=== PATIENT | female | born 1985 | race Caucasian/White ===

== ENCOUNTER → 2022-06-29 | Outpatient (CLI) | payer MEDICAID, SELFPAY ==
[2022-07-02 07:07] LABS: Chlamydia By Nucleic Acid AMP Negative (Negative)
[2022-07-02 08:31] LABS: Gonococcus By Nucleic Acid AMP Negative (Negative)
== END | disposition home or self-care (01) ==
PROVIDERS: Referring Provider Obstetrics & Gynecology; Visit Provider Obstetrics & Gynecology
DX: Z34.90 Encounter for supervision of normal pregnancy, unspecified, unspecified trimester (principal)
CPT/HCPCS: 87086; 87088; 87491; 87591

== ENCOUNTER → 2022-08-02 | Outpatient (CLI) | payer MEDICAID, SELFPAY ==
[2022-08-02 13:46] LABS: Absolute Lymphocyte Count 1.64 X10^3/uL (0.83-4.51); Absolute Neutrophil Count 7.6 X10^3/uL (2.0-7.7); Basophil# 0.02 X10^3/uL; Basophil% 0.2 % (0-1); Eosinophil# 0.07 X10^3/uL; Eosinophils% 0.7 % (0-5); Hematocrit 34.6 % (37-47); Hemoglobin 11.2 g/dL (12.0-15.0); Lymphocyte # 1.64 X10^3/ul (0.83-4.51); Lymphocyte % 16.7 % (19-41); Mean Corp Hgb Conc 32.4 g/dL (32-36); Mean Corpuscular Hgb 27.6 pg (27.0-32.0); Mean Corpuscular Volume 85.2 fL (81-99); Mean Platelet Vol. 8.9 fl (6.2-12.0); Monocyte# 0.45 X10^3/uL; Monocyte% 4.6 % (0-10); NRBC Flagged by Analyzer 0 % (0-5); Neutrophil # 7.62 X10^3/uL (2.7-7.7); Neutrophil % 77.4 % (47-70); Platelet Count 237 K/mm3 (150-450); RBC Distribution Width CV 14.1 % (11.6-14.6); RBC Distribution Width SD 43.8 fl (35.1-43.9); Red Blood Count 4.06 M/mm3 (4.2-5.4); White Blood Count 9.8 K/mm3 (4.4-11.0)
[2022-08-02 14:08] LABS: Glucose Challenge Gest 1H 50g 154 mg/dL (70-140)
[2022-08-02 14:52] LABS: HIV - WCH Non-Reactive (Nonreactive); Hepatitis B Surface Antigen Non-Reactive (Nonreactive); Hepatitis C Antibody Non-Reactive (Nonreactive); Rubella IgG Reactive (Nonreactive); Syphilis Antibodies Non-reactive
== END | disposition home or self-care (01) ==
LOC: PAVLAB 13:03
PROVIDERS: Referring Provider Obstetrics & Gynecology; Visit Provider Obstetrics & Gynecology
DX: Z34.90 Encounter for supervision of normal pregnancy, unspecified, unspecified trimester (principal)
CPT/HCPCS: 36415; 82950; 85025; 86703; 86762; 86780; 86803; 86850; 86900; 86901; 87340

== ENCOUNTER → 2022-08-08 | Outpatient (CLI) | payer MEDICAID, SELFPAY ==
[2022-08-08 11:34] LABS: Glucose GTT-Gestation. Fasting 94 mg/dL (<105)
[2022-08-08 11:48] LABS: Glucose GTT-Gestational 1 Hr 129 mg/dL (<190)
[2022-08-08 13:08] LABS: Glucose GTT-Gestational 2 Hr 155 mg/dL (<165)
[2022-08-08 14:20] LABS: Glucose GTT-Gestational 3 Hr 112 L (<145)
== END | disposition home or self-care (01) ==
LOC: LAB 10:09
PROVIDERS: Referring Provider Obstetrics & Gynecology; Visit Provider Obstetrics & Gynecology
DX: Z13.1 Encounter for screening for diabetes mellitus (principal)
CPT/HCPCS: 36415; 82951; 82952

== ENCOUNTER → 2022-10-27 | Outpatient (CLI) | payer MEDICAID, SELFPAY ==
[2022-10-27 12:06] LABS: Absolute Neutrophil Count 7.3 X10^3/uL (2.0-7.7); Basophil# 0.03 X10^3/uL; Basophil% 0.3 % (0-1); Eosinophil# 0.06 X10^3/uL; Eosinophils% 0.7 % (0-5); Hematocrit 30.1 % (37-47); Hemoglobin 9.4 g/dL (12.0-15.0); Lymphocyte % 13.2 % (19-41); Mean Corp Hgb Conc 31.2 g/dL (32-36); Mean Corpuscular Hgb 27.5 pg (27.0-32.0); Mean Platelet Vol. 9.3 fl (6.2-12.0); Monocyte# 0.46 X10^3/uL; Monocyte% 5.1 % (0-10); NRBC Flagged by Analyzer 0 % (0-5); Neutrophil # 7.28 X10^3/uL (2.7-7.7); Neutrophil % 79.9 % (47-70); Platelet Count 231 K/mm3 (150-450); RBC Distribution Width CV 13.5 % (11.6-14.6); RBC Distribution Width SD 43.7 fl (35.1-43.9); Red Blood Count 3.42 M/mm3 (4.2-5.4); White Blood Count 9.1 K/mm3 (4.4-11.0)
[2022-10-27 12:12] LABS: Glucose Challenge Gest 1H 50g 138 mg/dL (70-140)
[2022-10-27 12:57] LABS: HIV - WCH Non-Reactive (Nonreactive); Syphilis Antibodies Non-reactive
[2022-10-27 19:38] LABS: Xtra Tube EP Lab EXTRA TUBE
== END | disposition home or self-care (01) ==
LOC: PAVLAB 11:17
PROVIDERS: Registered Nurse; Referring Provider Obstetrics & Gynecology; Visit Provider Obstetrics & Gynecology
DX: O09.00 Supervision of pregnancy with history of infertility, unspecified trimester (principal); Z3A.24 24 weeks gestation of pregnancy; Z13.1 Encounter for screening for diabetes mellitus
CPT/HCPCS: 36415; 82950; 85025; 86703; 86780

== ENCOUNTER → 2022-11-15 | Outpatient (CLI) | payer MEDICAID, SELFPAY ==
[2022-11-15 10:51] LABS: Absolute Lymphocyte Count 1.57 X10^3/uL (0.83-4.51); Absolute Neutrophil Count 7.8 X10^3/uL (2.0-7.7); Basophil# 0.02 X10^3/uL; Basophil% 0.2 % (0-1); Eosinophil# 0.07 X10^3/uL; Eosinophils% 0.7 % (0-5); Hematocrit 29.4 % (37-47); Hemoglobin 9.7 g/dL (12.0-15.0); Lymphocyte # 1.57 X10^3/ul (0.83-4.51); Lymphocyte % 15.4 % (19-41); Mean Corpuscular Hgb 28.1 pg (27.0-32.0); Mean Corpuscular Volume 85.2 fL (81-99); Mean Platelet Vol. 8.7 fl (6.2-12.0); Monocyte# 0.69 X10^3/uL; Monocyte% 6.8 % (0-10); NRBC Flagged by Analyzer 0 % (0-5); Neutrophil # 7.77 X10^3/uL (2.7-7.7); Neutrophil % 76.4 % (47-70); Platelet Count 212 K/mm3 (150-450); RBC Distribution Width CV 13.9 % (11.6-14.6); RBC Distribution Width SD 42.6 fl (35.1-43.9); Red Blood Count 3.45 M/mm3 (4.2-5.4); White Blood Count 10.2 K/mm3 (4.4-11.0)
[2022-11-15 11:18] LABS: Glucose GTT-Gestation. Fasting 84 mg/dL (<105)
[2022-11-15 12:50] LABS: Glucose GTT-Gestational 1 Hr 156 mg/dL (<190)
[2022-11-15 13:39] LABS: Glucose GTT-Gestational 2 Hr 116 mg/dL (<165)
[2022-11-15 14:38] LABS: Glucose GTT-Gestational 3 Hr 103 L (<145)
[2022-11-15 14:45] LABS: Ferritin 7 ng/mL (8-252)
== END | disposition home or self-care (01) ==
PROVIDERS: Advanced Practice Midwife; Referring Provider Registered Nurse; Visit Provider Registered Nurse
DX: O99.019 Anemia complicating pregnancy, unspecified trimester (principal); Z3A.00 Weeks of gestation of pregnancy not specified
CPT/HCPCS: 36415; 82728; 82951; 82952; 85025

== ENCOUNTER → 2022-11-23 | Outpatient (CLI) | payer MEDICAID, SELFPAY ==
--- NOTE | 2022-11-23 13:36 | US_ITS ---
STUDY: Ultrasound OB limited 1 or more fetus REASON FOR EXAM: Female, 37 years old growth us. covid during PROVIDED GESTATIONAL AGE: 32 weeks 3 days correlating with January 15, 2023 delivery date PRIOR ULTRASOUND: None. TECHNIQUE: Transabdominal OB ultrasound grayscale and color flow and M-mode Doppler FINDINGS: Single live intrauterine with cephalic presentation. heart rate 148 bpm Filled stomach. Placenta posterior, grade 1, without evidence of abruption or previa ESTHER 14.8 with deepest vertical pocket 4.9 cm. Cervix 3.7 cm and closed. BIOMETRY: BPD: 8.4 cm: 33 weeks, 6 days HC: 30.0 cm: 33 weeks, 2 days AC: 29.1 cm: 33 weeks, 1 days FL: 6.0 cm: 31 weeks, 2 days age by current US: 32 weeks, 4 days. SUKHDEEP by current US: January 14, 2023 delivery date. Estimated weight: 2 pounds + -308 grams, this is 51 percentile. US/OB Limited With Biometrics IMPRESSION: Single live intrauterine with normal heart rate. Estimated gestational age by biometry is concordant with provided dating with weight at the 51st percentile. Electronically Signed: Pedrito Hsieh MD at 2:08 EDT ,
== END | disposition home or self-care (01) ==
PROVIDERS: Referring Provider Advanced Practice Midwife; Visit Provider Advanced Practice Midwife
DX: Z36.89 Encounter for other specified antenatal screening (principal); Z86.16 Personal history of COVID-19
CPT/HCPCS: 76816

== ENCOUNTER → 2022-12-04 | Outpatient (CLI) | payer MEDICAID, SELFPAY | END | disposition home or self-care (01) | LOC: LABSPEC 15:28 | PROVIDERS: Referring Provider Nurse Practitioner Women's Health; Visit Provider Nurse Practitioner Women's Health | DX: R35.0 Frequency of micturition (principal) | CPT/HCPCS: 87086; 87088 ==

== ENCOUNTER → 2022-12-22 | Outpatient (CLI) | payer MEDICAID, SELFPAY ==
[2022-12-22 10:28] LABS: Absolute Lymphocyte Count 1.32 X10^3/uL (0.83-4.51); Absolute Neutrophil Count 8.2 X10^3/uL (2.0-7.7); Basophil# 0.02 X10^3/uL; Basophil% 0.2 % (0-1); Eosinophil# 0.05 X10^3/uL; Eosinophils% 0.5 % (0-5); Hematocrit 35.3 % (37-47); Hemoglobin 11.2 g/dL (12.0-15.0); Lymphocyte # 1.32 X10^3/ul (0.83-4.51); Mean Corp Hgb Conc 31.7 g/dL (32-36); Mean Corpuscular Hgb 28.1 pg (27.0-32.0); Mean Corpuscular Volume 88.5 fL (81-99); Mean Platelet Vol. 9.4 fl (6.2-12.0); Monocyte# 0.53 X10^3/uL; Monocyte% 5.2 % (0-10); NRBC Flagged by Analyzer 0 % (0-5); Neutrophil # 8.18 X10^3/uL (2.7-7.7); Neutrophil % 80.4 % (47-70); Platelet Count 203 K/mm3 (150-450); RBC Distribution Width CV 15.5 % (11.6-14.6); RBC Distribution Width SD 50.2 fl (35.1-43.9); Red Blood Count 3.99 M/mm3 (4.2-5.4); White Blood Count 10.2 K/mm3 (4.4-11.0)
[2022-12-22 10:43] LABS: Ferritin 15 ng/mL (8-252)
--- NOTE | 2022-12-22 12:16 | US_ITS ---
STUDY: SECOND AND THIRD TRIMESTER OBSTETRICAL ULTRASOUND - LIMITED REASON FOR EXAM: Female, 37 years old growth scan, advance maternal age LMP: Established due date 01/15/2023. PRIOR ULTRASOUND: 11/23/2022 TECHNIQUE: Transabdominal TECHNICAL QUALITY: Adequate. FINDINGS: Single fetus identified in the uterus. Cephalic presentation. heart rate 137 bpm. Amniotic fluid index 10.29 cm. Largest fluid pocket 3.5 cm. Placenta is posterior. Grossly intact. No previa. Cervical length not well visualized. survey not assessed at this time. BIOMETRY: BPD: 9.03 cm: 36 weeks, 4 days HC: 33.70 cm: 38 weeks, 4 days AC: 34.95 cm: 38 weeks, 6 days FL: 6.80 cm: 35 weeks, 0 days Age by LMP: 36 weeks, 4 days. SUKHDEEP by LMP: 01/15/2023. age by prior US: 36 weeks, 5 days. SUKHDEEP by prior US: 01/14/2023. age by current US: 37 weeks, 2 days. SUKHDEEP by current US: 01/10/2023. Estimated weight: 3260 grams, +/- 489 grams, 79 percentile. Maternal ovaries not visualized. US/OB Limited With Biometrics IMPRESSION: Single live intrauterine estimated gestational age 37 weeks 2 days based on composite measurements. Electronically Signed: Swapna Parish MD at 0:45 EDT ,
== END | disposition home or self-care (01) ==
PROVIDERS: Advanced Practice Midwife; Obstetrics & Gynecology; Referring Provider Obstetrics & Gynecology; Visit Provider Obstetrics & Gynecology
DX: O09.529 Supervision of elderly multigravida, unspecified trimester (principal); O99.019 Anemia complicating pregnancy, unspecified trimester; Z3A.00 Weeks of gestation of pregnancy not specified
CPT/HCPCS: 36415; 76816; 82728; 85025; 87081

== ENCOUNTER 2023-01-16 07:29 | Inpatient (IN) | payer MEDICAID, SELFPAY ==
[2023-01-16] VITALS (42 sets, daily range): BP systolic 105–151; BP diastolic 58–97; PULSE 84–123; RESP 16; TEMP 36.4–37.3; O2SAT 92–100; BMI 34.0
--- NOTE | 2023-01-16 08:48 | HP.PCM.OB_ITS ---
HPI - General General Date of Admission: 01/16/23 HPI Narrative GRETCHEN SOMMER, is a 37 y/o @ 40 weeks 1 days who presents to L&D for IOL for AMA and obesity affecting . Maternal Data Information SUKHDEEP Calculator Estimated Delivery Date Method Current WG Current Estimate 01/15/23 Ultrasound #1 40w 1d Other Estimates 01/21/23 LMP (Uncertain) 39w 2d PFSH PFSH Home Medications vits,calcium no.78-iron fumarate-folic acid 29 mg-1 mg tablet (Prenatabs FA) 1 tab PO DAILY vitamin 03/29/14 [History Last Taken 03/28/14 0800] docusate sodium 100 mg capsule (Colace) 100 mg PO DAILY 06/20/22 [History Last Taken Unknown] aspirin 81 mg tablet,delayed release (Adult Aspirin Regimen) 81 mg PO DAILY 07/25/22 [History Last Taken Unknown] Allergy/AdvReac Type Severity Reaction Status Date / Time No Known Allergies Allergy Verified 01/16/23 08:47 Social History adopted: No household members: significant other and children number of children: 3 current occupational status: employed 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 current occupational exposures/hazards: No pets and animals: No history of recent travel: No sexually active: Yes Smoking Status: Never smoker alcohol intake: never substance use type: does not use well-balanced diet: daily or most days caffeine: No eating out: rarely or never during the past year weight has: remained stable what type of physical activity do you participate in: none wilson/nondenominational: Restoration seatbelt use: always do you feel safe at home: Yes 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 Date Name GA/Weeks Outcome Route Bth Weight Infant Gen Labor Lgth Anesthesia Del Locatn Provider FOB 09/14/09 [place] 39 live - full term forceps 6# Male e pidural [facility] Javier Asher 03/29/14 [place] 40 live - full term 7#14oz Male epi dural [facility] Dana Quispe 04/15/17 [place] 40 live - full term 8#15oz Male epi dural [facility] Sanket Quispe Visit Details Expected Delivery Route/Plan Labor Preferences- CB/BF classes: [] labor support person: [] labor intervention preferences: [] pain management options preferred: [] cut cord/dad catch: [] : [] PP control planned: wants Nexplanon in hospital discussed possible routes of delivery and associated risks: [] special requests: [] Plans Covid status: discussed Flu vaccine: discussed Tdap vaccine: done Rhogam: NA LARC form signed: done Problem list reviewed and updated with the most current plan of care details and appropriate orders placed. Relevant counseling for the gestational age provided. Continue routine care and follow up unless otherwise noted in visit notes/problem list details OB Flowsheet Initial Weight: Not Recorded Date -?-?-?-?-?-?-?-?-?-?-?-?- EGA Weight BP Urine Prot -?-?-?-?-?-?-?-?-?-?-?-?- Glucose FHR FuHt Pres Dilation -?-?-?-?-?-?-?-?-?-?-?-?- Effaced St Visit Note 06/29/22 -?-?-?-?-?-?-?-?-?-?-?-?- 11w 3d 190 lb 8 oz 125/84 -?-?-?-?-?-?-?-?-?-?-?-?- 179 -?-?--?-?-?-?-?-?-?-?-?-?- JV- single live IUP measuring 11 week 3 days, NIPT declined 07/31/22 -?-?-?-?-?-?-?-?-?-?-?-?- 16w 0d 194 lb 6 oz 124/82 Nega tive -?-?-?-?-?-?-?-?-?-?-?-?- Negative 162 -?-?-?-?-?-?-?-?-?-?-?-?- MH-No VB. Has no t done glucose yet, was late for prior draw. Will do this week. US ordered. 08/29/22 -?-?-?-?-?-?-?-?-?-?-?-?- 20w 1d 196 lb 4 oz 120/85 Nega tive -?-?-?-?-?-?-?-?-?-?-?-?- Negative 150 20 -?-?-?-?-?-?-?-?-?-?-?-?- KW- No concerns. +FM. No vb/lof/ctx. 3 hr Gtt normal. reviewed. had US today. 09/29/22 -?-?-?-?-?-?-?-?-?-?-?-?- 24w 4d 199 lb 130/79 Negative -?-?-?-?-?-?--?-?-?-?-?-?- Negative 145 24 -?-?-?-?-?-?-?-?-?-?-?-?- Sm- no vb lof go od fm no regular ctx Sm- no vb lof good fm no reg ular ctx no pain with hernia 10/27/22 -?-?-?-?-?-?-?-?-?-?-?-?- 28w 4d 200 lb 8 oz 125/90 128/76 Negative -?-?-?-?-?-?-?-?-?-?-?-?- Negative 135 29 -?-?-?-?-?-?-?-?-?-?-?-?- KW- no vb/lof/ct x. +FM. tdap and larc today. Hgb low-recommended iron. needs 3 hour GCT. 11/10/22 -?-?-?-?-?-?-?-?-?-?-?-?- 30w 4d 201 lb 4 oz 134/86 -?-?-?-?-?-?-?-?-?-?-?-?- 140 31 -?-?-?-?-?-?-?-?-?-?-?-?- SM- no vb lof go od fm no regular ctx 11/24/22 -?-?-?-?-?-?-?-?-?-?-?-?- 32w 4d 205 lb 2 oz 131/82 Nega tive -?-?-?-?-?-?-?-?-?-?-?-?- Negative 118 32 -?-?-?-?-?-?-?-?-?-?-?-?- LC- no lof/vb/ct x. good fm. no concerns. 12/04/22 -?-?-?-?-?-?-?-?-?-?-?-?- 34w 0d 204 lb 8 oz 122/84 Nega tive -?-?-?-?-?-?-?-?-?-?-?-?- Negative 136 0 -?-?-?-?-?-?-?-?-?-?-?-?- -work in for d yovana. +UA. Culture pending. Macrobid sent. Good FM 12/15/22 -?-?-?-?-?-?-?-?-?-?-?-?- 35w 4d 206 lb 2 oz 134/86 -?-?-?-?-?-?-?-?-?-?-?-?- 140 37 -?-?-?-?-?-?-?-?-?-?-?-?- SM- no vb lof go od fm no regular ctx 12/22/22 -?-?-?-?-?-?-?-?-?-?-?-?- 36w 4d 206 lb 8 oz 136/84 Trac e -?-?-?-?-?-?-?-?-?-?-?-?- Negative 140 36 Cephalic 0 -?-?-?-?-?-?-?-?-?-?-?-?- JV- GBS collecte d, labor precautions discussed. has growth scan today. cbc ordered 12/29/22 -?-?-?-?-?-?-?-?-?-?-?-?- 37w 4d 210 lb 2 oz 122/80 Nega tive -?-?-?-?-?-?-?-?-?-?-?-?- Negative 128 37 Cephalic -?-?-?--?-?-?-?-?-?-?-?-?- JV-no lof, vagin al bleeding, or dec fm. declines exam. gbs neg. 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 no lof, vaginal bleeding, or dec fm. wants to be induced on jan 16 ('s birthday) if possible. will discuss more at next visit. 01/12/23 -?-?-?-?-?-?-?-?-?-?-?-?- 39w 4d 213 lb 134/87 Negative -?-?-?-?-?-?-?-?-?-?-?-?- Negative 130 39 1 -?-?-?-?-?-?-?-?-?-?-?-?- 50 -3 KW- lead process engineer al os 5cm, internal 1. no edilberto/vb/regular contractions. good fm. no concerns. IOL set up ROS Constitutional Constitutional: Denies change in weight, fatigue, fever(s), headache(s), poor appetite or weakness Eyes Eyes: Denies blurry vision, change in vision, seeing flashes or spots in vision ENT HEENT: Denies dizziness, headache(s), loss taste/smell or sore throat Cardiovascular Cardiovascular: Denies chest pain, dizziness, dyspnea, irregular heart rhythm, leg edema, palpitations, rapid heart rate or vomiting Respiratory/Chest Respiratory/Chest: Denies chest tightness, cough, dyspnea or breast pain Gastrointestinal Gastrointestinal: Denies abdominal pain, anorexia, constipation, cramping, diarrhea, hemorrhoids, vomiting or weight changes Genitourinary Genitourinary: Denies dysuria, flank pain, genital lesions, genital pain, urinary frequency or urinary urgency Musculoskeletal Musculoskeletal: Denies back pain, difficulty walking, joint pain, limited range of motion, muscle cramps or numbness Integumentary Integumentary: Denies lesions or unusual bruising Neurologic Neurologic: Denies abnormal movements, abnormal speech, dizziness, numbness, seizure-like activity or syncope Psychiatric Psychiatric: Denies anxiety, behavioral changes, change in appetite, change in libido, cognitive impairment, confusion, depression, difficulty concentrating, hallucinations or suicidal thoughts Endocrine Endocrinology: Denies excessive sweating, polydipsia or polyuria Hematologic/Lymphatic Hematologic/Lymphatic: Denies easy bleeding, easy bruising or lymphadenopathy Allergic/Immunologic Allergic/Immunologic: Denies itchy eyes, lip swelling, seasonal rhinorrhea, rhinitis, throat swelling, tongue swelling, eczemia, wheezing or asthma Vital Signs Vital Signs Vital Signs: 01/16/23 07:40 01/16/23 07:40 Pulse Rate 84 Blood Pressure 128/90 H BP Systolic 128 BP Diastolic 90 Physical Exam Const alert, oriented x3, no apparent distress and healthy appearing General Appearance: cooperative; Negative for anxious HEENT normocephalic Face and Sinus: normal facial exam Eyes EOMs intact bilaterally and no scleral icterus General Eye: normal appearance of both eyes Neck full ROM and supple Lymph Lymphatic: no lymphadenopathy noted Chest Chest: abnormal inspection of the chest Resp normal respiratory effort Effort and Inspection: able to speak in complete sentences Cardio regular rate GI soft to palpation and non-tender Inspection: gravid Palpation: soft; Negative for tender external exam normal Narrative: external cervix is 4 cm. difficult to reach internal os and patient uncomfortable with exam. effacement at least 70% and station -3 Back/Spine no CVA tenderness Extremity normal to inspection, full ROM and no clubbing, cyanosis or edema General Extremity: Negative for calf tenderness or edema Skin Lesions: no lesions Rashes: no rashes Psych mental status grossly normal Labs Labs Labs: Blood Type O POSITIVE Antibody Screen NEGATIVE Hct 35.3 % (37-47) L Hgb 11.2 g/dL (12.0-15.0) L Pap Smear Negative Obstetrics US Syphilis Total Ab Non-reactive Rubella IgG Antibody Reactive (Nonreactive) Hep Bs Antigen Non-Reactive (Nonreactive) Chlamydia DNA ([facility]) Negative (Negative) Neisseria gonorrhoeae DNA ([facility]) Negative (Negative) HIV 1&2 Antibody Non-Reactive (Nonreactive) Glucose 1 Hr 50 gm 138 mg/dL (70-140) Rhogam given: No Assessment & Plan (1) UTI in : QUALIFIERS: Trimester: third trimester Qualified Code(s): O23.43 - Unspecified infection of urinary tract in , third trimester COMMENT: Macrobid. Culture pending:hx of recurrent and if + consider daily dosing until delivery (2) Anemia affecting : QUALIFIERS: Trimester: second trimester Qualified Code(s): O99.012 - Anemia complicating , second trimester COMMENT: iron supplement encouraged. cbc in 3 weeks (3) COVID-19 affecting in first trimester: COMMENT: asa 81mg daily, growth US @32 (51%) &36 wks, nl growth (4) Obesity affecting : COMMENT: passed 3 hour gtt, encouraged healthy weight gain (5) Umbilical hernia: COMMENT: precautions reviewed, recommend repair after delivery (6) Supervision of high risk , antepartum: COMMENT: PRR , SUKHDEEP 01/21/23 boy Darrell King Braxton BF Nyck (his first) (7) : QUALIFIERS: Weeks of gestation: 39 weeks Qualified Code(s): Z3A.39 - 39 weeks gestation of COMMENT: GBS neg. declined genetic & carrier testing, failed 1HR GCT, 3 HR GTT. nl anatomy (8) Advanced maternal age (AMA) in : COMMENT: declined genetic screening. 36 week growth US and delivery by 40 weeks PLAN: Plan Patient presents IOL, plan management for with pitocin/AROM. Pain management: plans epidural. GBS negative. Management of any complications: none I have reviewed the [facility] and made any clinically relevant updates.
[2023-01-16] MEDS: Lactated Ringers 1,000 ML 50 ML IV (09:05)
[2023-01-16] MEDS: Oxytocin 15 Units/NS 250ml 15 UNITS/250 ML IV.SOLN 2 UNITS IV (09:41)
[2023-01-16 09:47] LABS: Absolute Lymphocyte Count 1.38 X10^3/uL (0.83-4.51); Absolute Neutrophil Count 7.7 X10^3/uL (2.0-7.7); Basophil# 0.01 X10^3/uL; Basophil% 0.1 % (0-1); Eosinophil# 0.04 X10^3/uL; Eosinophils% 0.4 % (0-5); Hematocrit 37.6 % (37-47); Hemoglobin 12.1 g/dL (12.0-15.0); Lymphocyte # 1.38 X10^3/ul (0.83-4.51); Lymphocyte % 14.2 % (19-41); Mean Corp Hgb Conc 32.2 g/dL (32-36); Mean Corpuscular Hgb 28.5 pg (27.0-32.0); Mean Corpuscular Volume 88.5 fL (81-99); Mean Platelet Vol. 10.3 fl (6.2-12.0); Monocyte# 0.55 X10^3/uL; Monocyte% 5.7 % (0-10); NRBC Flagged by Analyzer 0 % (0-5); Neutrophil # 7.67 X10^3/uL (2.7-7.7); Neutrophil % 79.1 % (47-70); Platelet Count 216 K/mm3 (150-450); RBC Distribution Width CV 15.2 % (11.6-14.6); RBC Distribution Width SD 49.2 fl (35.1-43.9); Red Blood Count 4.25 M/mm3 (4.2-5.4); White Blood Count 9.7 K/mm3 (4.4-11.0)
[2023-01-16] MEDS: LACTATED RINGERS 500 ML 999 ML IV (12:24)
[2023-01-16] MEDS: fentaNYL-bupivacaine (epidural) 100 ML BAG EPIDURAL (13:45)
[2023-01-16 14:51] LABS: Syphilis Antibodies Non-reactive
[2023-01-16] MEDS: Lactated Ringers 1,000 ML 200 ML IV (14:55)
[2023-01-16] MEDS: Ondansetron 4 MG/2 ML Vial IV (15:40)
--- NOTE | 2023-01-16 16:28 | PN_ITS ---
Progress Note note from 2:00 today pt is comfortable with epidural now and consents to epidural. current tracing: FHT: Moderate variability reactive no decelerations category I tracing [place]: q2 min Contractions cx: 4/70/-2 membranes ruptured and clear fluid reviewed tracing abnormalities since last note: no change A/P: IOL- continue increasing pitocin reassess in 2 hours.
--- NOTE | 2023-01-16 19:04 | OP.PCM_ITS ---
Assessment & Plan (1) UTI in : QUALIFIERS: Trimester: third trimester Qualified Code(s): O23.43 - Unspecified infection of urinary tract in , third trimester COMMENT: Macrobid. Culture pending:hx of recurrent and if + consider daily dosing until delivery (2) Anemia affecting : QUALIFIERS: Trimester: second trimester Qualified Code(s): O 99.012 - Anemia complicating , second trimester COMMENT: iron supplement encouraged. cbc in 3 weeks (3) COVID-19 affecting in first trimester: COMMENT: asa 81mg daily, growth US @32 (51%) &36 wks, nl growth (4) Obesity affecting : COMMENT: passed 3 hour gtt, encouraged healthy weight gain (5) Umbilical hernia: COMMENT: precautions reviewed, recommend repair after delivery (6) Supervision of high risk , antepartum: COMMENT: PRR , SUKHDEEP 01/21/23 Darrell Hamilton Braxton BF Nyck (his first) (7) : QUALIFIERS: Weeks of gestation: 39 weeks Qualified Code(s): Z3A.39 - 39 weeks gestation of COMMENT: GBS neg. declined genetic & carrier testing, failed 1HR GCT, 3 HR GTT. nl anatomy (8) Advanced maternal age (AMA) in : COMMENT: declined genetic screening. 36 week growth US and delivery by 40 weeks Maternal Data Information SUKHDEEP Calculator Estimated Delivery Date Method Current WG Current Estimate 01/15/23 Ultrasound #1 40w 1d Other Estimates 01/21/23 LMP (Uncertain) 39w 2d Final SUKHDEEP: 01/15/23 Final SUKHDEEP Source: US <20 weeks Gestational age: 40 weeks 1 day Vaginal Delivery Maternal Presentation Maternal Presentation: Elective Induction Type of Induction: Pitocin and Amniotomy Operative Information Date of Procedure: 01/16/23 Pre-Operative Diagnosis: @ 40 weeks 1 day, elective induction Post-Operative Diagnosis: @ 40 weeks 1 day, elective induction Surgery / Procedure Performed: Spontaneous Vaginal Delivery Type of Anesthesia: Epidural Estimated Blood Loss: 100cc Findings Description of Procedure: Patient began pushing and delivered the head in the RIGOBERTO presentation. The head was delivered atraumatically however a tight nuchal cord was noted and was unable to reduced manually. The cord was doubly clamped and cut. The anterior and posterior shoulders delivered without complication followed by the rest of the infant and the was placed on the maternal abdomen. The cord was noted to be intact with three-vessel cord. Cord blood and gases were obtained for terminal bradycaria. The Cord was clamped and cut and gentle traction was applied to the cord. The cord however released from the placenta and the placenta was delivered immediately manually. The perineum and vagina were inspected and noted to have no laceration. EBL was 100 cc. Patient and infant tolerated delivery well. Presentation: Vertex Amniotic Fluid Description: Clear Placental Delivery Description: Manual Removal Placenta Disposition: [facility] Cord Vessel Description: 3 Vessels Cord Entanglement: Around neck x 1, tight Nuchal Cord Compression: With compression Cord Gases: ABG and VBG Infant A Gender: Male (1 minute): 8 (5 minute): 9 Delayed Cord Clamping: No Post Vaginal Delivery Medications Given After Delivery: IV Pitocin Episiotomy Description: None Laceration: None Complication Complications: None Multi Select Codes Urinary/Genital Urinary/Genital CPT Codes: 49869 Vaginal Delivery+ Care([facility])
[2023-01-16] MEDS: Oxytocin 15 Units/NS 250ml 15 UNITS/250 ML IV.SOLN 83 UNITS IV (19:26)
[2023-01-16] MEDS: Cefazolin 2 GM in 0.9% Normal Saline 100 ML IV (20:09)
[2023-01-16] MEDS: Naproxen 500 MG Tablet PO (21:15)
[2023-01-17] VITALS (9 sets, daily range): BP systolic 117–149; BP diastolic 60–82; PULSE 70–91; RESP 16–17; TEMP 36.2–36.8; O2SAT 98–100
--- NOTE | 2023-01-17 08:12 | PN.OBGYN_ITS ---
Subjective Subjective Patient doing well without complaints. Tolerating PO. Ambulating and voiding without difficulty. Feeding well. Denies chest pain, shortness of breath, calf pain/swelling, fevers, chills, lightheadedness. Objective Data Objective Data Vital Signs: Vital Signs Temp Pulse Resp BP Pulse Ox O2 Del Method 97.1 F L 91 16 138/71 H 96 Room Air 01/17/23 03:25 01/17/23 03:25 01/17/23 03:25 01/17/23 03:25 01/16/23 20:53 01/17/23 03:25 Oxygen Delivery Method Room Air Weight: 211 lb Body Mass Index (BMI) 34.0 Intake & Output: Intake and Output for Last 24 Hours 01/15/23 01/16/23 01/17/23 23:59 23:59 23:59 Intake Total 2707.03 / 2707.03 Output Total 1000 / 1000 550 / 550 Balance 1707.03 / 1707.03 -550 / -550 Lab / Micro Data 01/16/23 09:05 Labs: Laboratory Results - last 24 hr 01/16/23 09:05: WBC 9.7, RBC 4.25, Hgb 12.1, Hct 37.6, MCV 88.5, MCH 28.5, MCHC 32.2, RDW Std Deviation 49.2 H, RDW Coeff of [place] 15.2 H, Plt Count 216, MPV 10.3, Immature Gran % (Auto) 0.500, Neut % (Auto) 79.1 H, Lymph % (Auto) 14.2 L, [place] % (Auto) 5.7, Eos % (Auto) 0.4, Baso % (Auto) 0.1, Absolute Neuts (auto) 7.7, Absolute Lymphs (auto) 1.38, Nucleated RBC % 0, Syphilis Total Ab Non- reactive, Blood Type O POSITIVE, Antibody Screen NEGATIVE Physical Exam Const alert and oriented x3 HEENT normocephalic Eyes PERRL Neck full ROM Resp normal respiratory effort GI soft to palpation GI Narrative: FF below U; umbilical hernia noted, soft, nontender Assessment & Plan (1) Spontaneous vaginal delivery: COMMENT: 01/16/23 JChloé Galvan PLAN: Plan s/p PPD # 1 1. routine post delivery care 2. breast/bottle feeding- support given 3. rh positive 4. rubella immune 5. home today
[2023-01-17] MEDS: Naproxen 500 MG Tablet PO (10:35)
--- NOTE | 2023-01-17 11:06 | DCINST_ITS ---
Discharge Instructions Diet Discharge Diet: No restrictions Activity Discharge Activity: Return to Normal Activity, May Not Drive (while taking narcotic pain medications.) and May Shower May resume sexual activity in: 4-6 weeks Dressing / Incision Call your doctor if your incision/area has: Continuous Slow Oozing, Sudden Increased Bleeding, Increased Pain/ Swelling, Increased Redness and Foul Smelling Discharge Follow Up Care Please Follow Up With: Yaneli Gray, When: Call [phone] to make an appointment with your doctor in 6 weeks. If you had elevated blood pressure or 4th degree laceration, you will need to be seen in 2 weeks. Test Results: Test results from this visit will be discussed in further detail at your follow- up appointment, if applicable. Discharge Plan Admission Admit Date/Time: 01/16/23 07:29 Attending Provider: Yaneli Gray Primary Care Provider: Care Physician,Sandy Primary Discharge Orders/Prescriptions Prescriptions: No Action docusate sodium [Colace] 100 mg capsule 100 mg PO DAILY [id number] [Prenatabs FA] 1 TABLET tablet 1 tab PO DAILY aspirin [Adult Aspirin Regimen] 81 mg tablet,delayed release (DR/EC) 81 mg PO DAILY Referrals / Follow Up: Care Physician,No Primary [Primary Care Provider] - Disposition Disposition (needs filled in before D/C Order can be placed): Home, Self Care
[2023-01-17] MEDS: Prenatal Vits Tablet 1 TABLET PO (14:37)
== END 2023-01-17 20:50 | disposition home or self-care (01) | DRG 560 ==
PROVIDERS: Advanced Practice Midwife; Admitting Provider Obstetrics & Gynecology; Referring Provider Obstetrics & Gynecology; Visit Provider Obstetrics & Gynecology
DX: O69.2XX0 Labor and delivery complicated by other cord entanglement, with compression, not applicable or unspecified (principal); Z37.0 Single live birth; K42.9 Umbilical hernia without obstruction or gangrene; O99.214 Obesity complicating childbirth; O99.62 Diseases of the digestive system complicating childbirth; O99.02 Anemia complicating childbirth; Z3A.40 40 weeks gestation of pregnancy; Z79.82 Long term (current) use of aspirin; Z86.16 Personal history of COVID-19
CPT/HCPCS: 59025; 59050; 85025; 86780; 86850; 86900; 86901; 99221; J7120; G0378; J2405